=== PATIENT | female | born 1945 | race Asian ===

== ENCOUNTER 2021-06-09 10:40 | Outpatient (CLI) | payer MEDICARE | END 2021-06-09 10:41 | disposition home or self-care (01) | LOC: CSHMAMMO 10:40 | PROVIDERS: ATTEND Internal Medicine | DX: Z12.31 Encounter for screening mammogram for malignant neoplasm of breast (principal) | CPT/HCPCS: 77063; 77067 ==

== ENCOUNTER 2022-10-19 10:02 | Outpatient (CLI) | payer MEDICARE | END 2022-10-19 10:03 | disposition home or self-care (01) | LOC: CSHMAMMO 10:02 | PROVIDERS: ATTEND Internal Medicine | DX: Z12.31 Encounter for screening mammogram for malignant neoplasm of breast (principal); M81.0 Age-related osteoporosis without current pathological fracture | CPT/HCPCS: 77063; 77067; 77080 ==

== ENCOUNTER 2022-12-27 08:39 | Day surgery (SDC) | payer MEDICARE ==
[2022-12-23 15:06] VITALS: BMI 23.6
[2022-12-27] MEDS ORDERED: PROPOFOL 0 ML ONE ×3 (10:11→10:16)
[2022-12-27] MEDS ORDERED: Lidocaine 1% PF 5 ML VIAL ONE (10:12)
[2022-12-27] MEDS ORDERED: PROPOFOL 20 ML ONE (10:17)
== END 2022-12-27 11:26 | disposition home or self-care (01) ==
LOC: CSHSDC 08:39
PROVIDERS: ATTEND Internal Medicine Gastroenterology
PROC: 0D758ZZ Dilation of Esophagus, Via Natural or Artificial Opening Endoscopic (ICD-10-PCS; principal; 2022-12-27)
DX: K21.9 Gastro-esophageal reflux disease without esophagitis (principal); R13.10 Dysphagia, unspecified; K22.89 Other specified disease of esophagus; I10 Essential (primary) hypertension; E78.5 Hyperlipidemia, unspecified; Z88.8 Allergy status to other drugs, medicaments and biological substances; Z79.899 Other long term (current) drug therapy
CPT/HCPCS: J2704